=== PATIENT | female | born 2005 | race Caucasian/White ===

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

== ENCOUNTER 2023-12-23 20:28 | Emergency (ER) | payer OTHER, SELFPAY ==
[2023-12-23 21:09] LABS: BHCG - Serum Negative (NEGATIVE); Pregs Control Background? CLEAR/WHITE (CLR/WHITE); Pregs Control Bar Appear? YES (CONTROL BAR)
[2023-12-23 21:17] LABS: ALT (SGPT) 15 U/L (8-55); AST (SGOT) 18 U/L (5-34); Albumin 5.1 g/dL (3.5-5.0); Alkaline Phosphatase 69 U/L (40-100); Anion Gap 17 mmol/L (10-20); BUN (Urea Nitrogen) 12 mg/dL (7.0-18.7); Bilirubin, Total 0.8 mg/dL (0.2-1.2); Calc. Creatinine Clearance 0 mL/min (70-130); Carbon Dioxide 17 mmol/L (22-29); Chloride 108 mmol/L (98-107); Estimated GFR 108; Globulin 3.3 g/dL (2.4-3.5); Glucose 128 mg/dL (70-105); Lipase 22 U/L (8-78); Potassium 2.9 mmol/L (3.5-5.1); Protein, Total 8.4 g/dL (6.0-8.3); Sodium 139 mmol/L (136-145)
[2023-12-23] MEDS ORDERED: Potassium Chloride 20 MEQ TAB ONE (21:45)
[2023-12-23] MEDS ORDERED: Potassium Chloride 10 MEQ in Premix 1 BAG IVPB SCH (22:00)
== END 2023-12-23 23:50 | disposition home or self-care (01) ==
LOC: CSHERS 20:28
DX: R55 Syncope and collapse (principal); E87.6 Hypokalemia; Z75.3 Unavailability and inaccessibility of health-care facilities
CPT/HCPCS: 80053; 83690; 84703; 96374; J3480